=== PATIENT | female | born 1990 | race Caucasian/White ===

== ENCOUNTER 2024-06-01 19:48 | Emergency (ER) | payer MEDICAID ==
[~2024-06-01] VITALS: Ht 165.1 cm; Wt 72.7 kg
[~2024-06-01 19:48] MED LIST: AMOX-457 PO; DOXY100C PO; LEVO-72 PO
[2024-06-01 20:01] VITALS: TEMP 98.5
[2024-06-01 20:19] LABS: COVID AG,FIA SOURCE NASAL SWAB
[2024-06-01 20:40] LABS: INFLUENZA TYPE A NEGATIVE FOR TYPE A (NEGATIVE); INFLUENZA TYPE B NEGATIVE FOR TYPE B (NEGATIVE); SARS-COV2 (COVID) ANTIGEN,FIA Negative (Negative)
[2024-06-01] MEDS ORDERED: BENZ-227 PO (21:03)
[2024-06-01] MEDS ORDERED: GUAIF600 PO (21:03)
[2024-06-01] MEDS ORDERED: ALBU18HF12 IH (21:03)
[2024-06-01] MEDS ORDERED: IBUP-1492 PO (21:03)
[2024-06-01 21:05] VITALS: BP 106/57; PULSE 90; RESP 20; O2SAT 100
== END 2024-06-01 21:11 | disposition home or self-care (01) ==
LOC: EMS 19:48
DX: J06.9 Acute upper respiratory infection, unspecified (principal); Z20.822 Contact with and (suspected) exposure to COVID-19
CPT/HCPCS: 87804; 99283